=== PATIENT | male | born 2000 | race Caucasian/White ===

== ENCOUNTER 2023-05-04 20:59 | Emergency (ER) | payer OTHER ==
[2023-05-05] MEDS ORDERED: Boostrix 0.5 ML (Tdap) VIAL (>/=7 yrs of age) ONE (00:18)
[2023-05-05] MEDS ORDERED: Bacitracin 1 PK ONE (00:30)
== END 2023-05-04 23:43 | disposition home or self-care (01) ==
LOC: CSHERS 20:59
DX: T23.241A Burn of second degree of multiple right fingers (nail), including thumb, initial encounter (principal); X14.1XXA Other contact with hot air and other hot gases, initial encounter; Y99.0 Civilian activity done for income or pay; Z23 Encounter for immunization
CPT/HCPCS: 16020; 90471; 90715